=== PATIENT | male | born 1965 | race Caucasian/White ===

== ENCOUNTER 2022-07-28 09:44 | Emergency (ER) | payer BC ==
[2022-07-28] MEDS ORDERED: Furosemide 100 MG/10 ML SDV IVPUSH ONE (10:26)
[2022-08-22 15:18] LABS: ANION GAP 8.7 mEq/L (7-13); CHLORIDE,CL 97 mmol/L (98-107); ESTIMATED GFR 91 mL/min (>=60); SODIUM,NA 140 mmol/L (136-145)
[2022-08-22 15:22] LABS: AMPHETAMINES,URINE NEGATIVE (NEGATIVE); BARBITURATES,URINE NEGATIVE (NEGATIVE); BENZODIAZEPINE,URINE NEGATIVE (NEGATIVE); MDMA (ECSTASY), URINE NEGATIVE (NEGATIVE); METHADONE,URINE NEGATIVE (NEGATIVE); METHAMPHETAMINES,URINE NEGATIVE (NEGATIVE); OPIATES,URINE NEGATIVE (NEGATIVE); OXYCODONE,URINE NEGATIVE (NEGATIVE); PHENCYCLIDINE,URINE NEGATIVE (NEGATIVE); TCA,URINE NEGATIVE (NEGATIVE)
== END 2022-07-28 16:15 | disposition home or self-care (01) ==
LOC: DL.ED 09:44
DX: J96.11 Chronic respiratory failure with hypoxia (principal); R60.0 Localized edema; I10 Essential (primary) hypertension; Z20.822 Contact with and (suspected) exposure to COVID-19
CPT/HCPCS: 36415; 71045; 80053; 80305; 80307; 81003; 83605; 83735; 83880; 84443; 84484; 85025; 85379; 87635; 96374; 99285; J1940; 93005; 93010; 99284; U0002

== ENCOUNTER 2023-02-01 05:32 | Day surgery (SDC) | payer BC ==
[~2023-02-01 05:32] MED LIST: Dextrose 5%-0.45% NaCl 1,000 ML IV SCH; Sodium Chloride 0.9% 10 ML Syringe FLUSH PRN; Sodium Chloride 0.9% 10 ML Syringe FLUSH SCH
[2023-02-01] MEDS ORDERED: Dextrose 5%-0.45% NaCl 1,000 ML IV SCH (06:00)
[2023-02-01] MEDS ORDERED: fentaNYL 100 MCG/2 ML SDV ONE (06:21)
[2023-02-01] MEDS ORDERED: Midazolam 1 MG/ML 2 ML SDV ONE (06:21)
[2023-02-01] MEDS ORDERED: fentaNYL 100 MCG/2 ML SDV IV ONE ×2 (06:28→06:29)
[2023-02-01] MEDS ORDERED: Midazolam 1 MG/ML 2 ML SDV IV ONE ×4 (06:29→06:37)
== END 2023-02-01 08:15 | disposition home or self-care (01) ==
LOC: DL.ENDO 05:32
PROVIDERS: ATTEND Internal Medicine Gastroenterology
DX: Z12.11 Encounter for screening for malignant neoplasm of colon (principal); D12.2 Benign neoplasm of ascending colon; D12.4 Benign neoplasm of descending colon; E66.09 Other obesity due to excess calories; I10 Essential (primary) hypertension; E78.5 Hyperlipidemia, unspecified; Z98.890 Other specified postprocedural states; Z68.42 Body mass index [BMI] 45.0-49.9, adult
CPT/HCPCS: J2250; J3010; J7042